=== PATIENT | male | born 1955 | race Caucasian/White ===

== ENCOUNTER 2023-01-30 12:22 | Emergency (ER) | payer OTHER ==
[~2023-01-30] VITALS: Ht 175.3 cm; Wt 70.4 kg
[2023-01-30 12:30] VITALS: BP 149/76; PULSE 73; RESP 20; TEMP 98; O2SAT 98
[2023-01-30 14:00] VITALS: BP 139/69; PULSE 70; RESP 16; O2SAT 98
--- NOTE | 2023-01-30 14:01 | NUR ---
Pt bib daughter for lower back pain for several days. Pt states he felt it suddenly when he bent over several days ago when he felt a shock through his back starting at the lumbar. Pain is currently nagging and infrequent. Pt is a/o x 4, vss, no ss of acute distress, breathing equal and unlabored, speech clear. Daughter at bedside. Pain is 4/10, tolerable, non radiating, intermittent, movement aggrivates pain.
[2023-01-30] MEDS ORDERED: LID5T TP ×2 (14:15→14:39)
[2023-01-30] MEDS ORDERED: DICL100G5 TP ×2 (14:15→14:39)
--- NOTE | 2023-01-30 14:46 | NUR ---
Patient discharged with v/s stable. Written and verbal after care instructions given and explained. Patient alert, oriented and verbalized understanding of instructions. Ambulatory with steady gait. All questions addressed prior to discharge. ID band removed. Patient advised to follow up with PMD. Rx reviewed. Patient educated on indication of medication including possible reaction and side effects. Opportunity to ask questions provided and answered.
== END 2023-01-30 14:38 | disposition home or self-care (01) ==
LOC: EDBD 12:22 → MED 12:22
DX: M54.50 Low back pain, unspecified (principal); I10 Essential (primary) hypertension; E78.5 Hyperlipidemia, unspecified; N40.0 Benign prostatic hyperplasia without lower urinary tract symptoms; Z79.899 Other long term (current) drug therapy
CPT/HCPCS: 72110; 99283

== ENCOUNTER 2023-03-26 15:56 | Emergency (ER) | payer OTHER ==
[~2023-03-26] VITALS: Ht 165.1 cm; Wt 72.6 kg
[~2023-03-26 15:56] MED LIST: DICL100G5 TP; LID5T TP
[2023-03-26 16:28] VITALS: BP 115/66; PULSE 62; RESP 16; TEMP 98; O2SAT 97
[2023-03-26 18:49] LABS: BASOPHILS # (AUTO) 0.1 K/uL (0.00-0.22); BASOPHILS % (AUTO) 0.9 % (0.0-2.0); EOSINOPHILS # (AUTO) 0.3 K/uL (0-0.4); EOSINOPHILS % (AUTO) 4.3 % (0.0-4.0); HEMATOCRIT 39.1 % (36-52); HEMOGLOBIN 13.1 g/dL (12.0-18.0); LYMPHOCYTES # (AUTO) 2.3 K/uL (2.0-11.5); MEAN CORPUSCULAR HEMOGLOBIN 30 pg (27-31); MEAN CORPUSCULAR HGB CONC 34 g/dL (33-37); MONOCYTES # (AUTO) 0.7 K/uL (0.8-1.0); MONOCYTES % (AUTO) 9.6 % (1.7-9.3); NEUTROPHILS # (AUTO) 3.7 K/uL (1.8-7.7); NEUTROPHILS % (AUTO) 52.2 % (42.2-75.2); PLATELET COUNT (AUTO) 251 K/uL (140-450); RED BLOOD CELL COUNT(AUTO) 4.34 MIL/uL (4.20-6.10); WHITE BLOOD COUNT (AUTO) 7.1 K/uL (4.8-10.8)
[2023-03-26 19:06] LABS: ALBUMIN 4.3 g/dL (3.4-5.0); ANION GAP 10.3 (8-16); CALCIUM 8.8 mg/dL (8.5-10.1); CARBON DIOXIDE 27.6 mmol/L (21-32); CREATININE 0.9 mg/dL (0.6-1.3); POTASSIUM 3.9 mmol/L (3.5-5.1); TOTAL BILIRUBIN 0.5 mg/dL (0.0-1.0); TOTAL PROTEIN, SERUM 7.2 g/dL (6.4-8.2)
[2023-03-26] MEDS ORDERED: ACET-10509 PO (19:37)
[2023-03-26 20:10] VITALS: BP 115/66; PULSE 56; RESP 16; TEMP 98; O2SAT 99
== END 2023-03-26 20:10 | disposition home or self-care (01) ==
LOC: MED 15:56
DX: R60.0 Localized edema (principal); I10 Essential (primary) hypertension; Z79.899 Other long term (current) drug therapy
CPT/HCPCS: 36415; 71045; 80053; 83880; 84484; 85025; 93005; 93970; 99285; Q0092